=== PATIENT | female | born 1975 | race Caucasian/White ===

== ENCOUNTER → 2017-12-26 09:24 | Outpatient (CLI) | payer BC, SELFPAY ==
--- NOTE | 2017-12-26 09:38 | RAD_ITS ---
STUDY: X-RAY - RIGHT RADIUS AND ULNA REASON FOR EXAM: Female, 41 years old. Radiating arm pain TECHNIQUE: 2 view(s) of the forearm. COMPARISON: None. FINDINGS: There is no demonstrated soft tissue swelling. Normal visualized radius. Normal visualized ulna. RAD/Forearm 2 Views IMPRESSION: Normal x-ray examination of the radius and ulna. Electronically Signed: Carlos Avalos MD at 10:32 EDT , Service support ,
== END ==
LOC: MTLAB 09:30
PROVIDERS: Family Provider Family Medicine; PCP Family Medicine; Visit Provider Family Medicine
DX: S49.91XS Unspecified injury of right shoulder and upper arm, sequela (principal)
CPT/HCPCS: 73090

== ENCOUNTER → 2019-12-18 | Outpatient (CLI) | payer BC, SELFPAY ==
[2019-12-18 10:08] LABS: Anion Gap 5 (5-15); BUN 9 mg/dL (7-18); BUN/Creat Ratio 11.4 RATIO (10-20); Calcium,Total 8.8 mg/dL (8.5-10.1); Chloride 106 mmol/L (98-107); Cholesterol 268 mg/dL (200); Creatinine, Serum 0.79 mg/dL (0.55-1.02); EST Glomerular Filtration Rate 84 mL/min (>60); Est Glom Filt Rate - Afr Amer 101 mL/min (>60); Glucose 243 mg/dL (74-106); High Density Lipoprotein 36 mg/dL; Potassium 4.2 mmol/L (3.5-5.1); Sodium Level 137 mmol/L (136-145); Triglycerides 268 mg/dL; Very Low Density Lipoprotein 54 mg/dL (5-40)
[2019-12-18 10:43] LABS: Hemoglobin A1c 10.6 % (3.8-5.6)
== END | disposition home or self-care (01) ==
PROVIDERS: PCP Family Medicine; Visit Provider Family Medicine
DX: E11.9 Type 2 diabetes mellitus without complications (principal)
CPT/HCPCS: 36415; 80048; 80061; 83036

== ENCOUNTER → 2020-04-01 | Outpatient (CLI) | payer BC, SELFPAY ==
[2020-04-01 13:59] LABS: Anion Gap 6 (5-15); BUN 12 mg/dL (7-18); BUN/Creat Ratio 16.7 RATIO (10-20); Calcium,Total 8.9 mg/dL (8.5-10.1); Chloride 108 mmol/L (98-107); Cholesterol 182 mg/dL (200); Creatinine, Serum 0.72 mg/dL (0.55-1.02); EST Glomerular Filtration Rate 93 mL/min (>60); Est Glom Filt Rate - Afr Amer 113 mL/min (>60); Glucose 133 mg/dL (74-106); High Density Lipoprotein 41 mg/dL; Potassium 4.3 mmol/L (3.5-5.1); Sodium Level 140 mmol/L (136-145); Triglycerides 144 mg/dL; Very Low Density Lipoprotein 29 mg/dL (5-40)
== END | disposition home or self-care (01) ==
LOC: MFPLAB 10:00
PROVIDERS: PCP Family Medicine; Referring Provider Family Medicine; Visit Provider Family Medicine
DX: E11.9 Type 2 diabetes mellitus without complications (principal)
CPT/HCPCS: 36415; 80048; 80061

== ENCOUNTER → 2020-08-24 06:14 | Outpatient (CLI) | payer BC, SELFPAY ==
--- NOTE | 2020-08-24 12:45 | NEURO_ITS ---
NCS and/or EMG Patient Report Ordering Doctor: David Mcguire DATE OF SERVICE: 08/24/20 Екатерина Bee presents for electrodiagnostic testing of the right upper limb. She reports severe pain and numbness throughout the right arm. She has had previous skin grafting to the arm and axilla. Electrodiagnostic findings: Prolonged right median motor latency with normal amplitude and reduced conduction velocity. Right ulnar motor response reveals decreased conduction velocity and diminished amplitude across the elbow. Prolo nged right median sensory latency at the wrist. Normal radial and ulnar sensory responses. On needle EMG, all muscles tested in the right upper limb showed no evidence of denervation with normal motor action potentials. Electrodiagnostic assessment: This is an abnormal study in the right upper limb. 1. Electrodiagnostic findings demonstrate right-sided median mononeuropathy. This is consistent with a mild to moderate right carpal tunnel syndrome. 2. Electrodiagnostic findings demonstrate a right-sided cubital tunnel syndrome, moderate to advanced in nature. If there are any further questions, please do not hesitate to contact me.
== END ==
PROVIDERS: PCP Family Medicine; Referring Provider Family Medicine; Visit Provider Family Medicine
DX: R20.2 Paresthesia of skin (principal); R20.0 Anesthesia of skin
CPT/HCPCS: 95886; 95910